=== PATIENT | female | born 1955 | race Caucasian/White ===

== ENCOUNTER 2018-06-09 10:22 | Emergency (ER) | payer MEDICARE, BC ==
[~2018-06-09] VITALS: Ht 162.6 cm; Wt 68.0 kg
[~2018-06-09 10:22] MED LIST: [UNRECOGNIZED DRUG - OTHER]
[2018-06-09 10:58] LABS: Source, Urine Clean Catch
[2018-06-09 11:13] LABS: Bilirubin, Urine Neg (Neg); Blood, Urine 4+ (Neg); Glucose Qualitative, Urine Neg (Neg); Ketones, Urine Neg (Neg); Leukocyte Esterase, Urine Neg (Neg); Nitrite, Urine Neg (Neg); Protein, Urine Neg (Neg); Specific Gravity, Urine 1.025 (1.003-1.022); Urobilinogen, Urine NORM (Normal)
[2018-06-09 11:36] LABS: Appearance, Urine Clear (Clear); Color, Urine Yellow (P-Yellow)
[2018-06-09 11:37] LABS: Bacteria Rare /hpf; Mucus Light (0-Heavy); Squamous Epithelial Cells Few /hpf (Few); White Blood Cells, Urine 0-2 /hpf (0-5)
[2018-06-09] MEDS ORDERED: MECL12.5 PO (12:03)
== END 2018-06-09 12:20 | disposition home or self-care (01) ==
LOC: ER 10:22
PROVIDERS: Internal Medicine
DX: H83.09 Labyrinthitis, unspecified ear (principal); M62.830 Muscle spasm of back; Z91.048 Other nonmedicinal substance allergy status
CPT/HCPCS: 81001; 99283

== ENCOUNTER 2020-06-09 00:18 | Inpatient (IN) | payer MEDICARE, BC, OTHER ==
[~2020-06-09] VITALS: Ht 162.6 cm; Wt 72.4 kg
[~2020-06-09 00:18] MED LIST changes: +MECL12.5 PO
[2020-06-09 06:12] LABS: BASOPHILS ABSOLUTE AUTO 0.04 K/mm3 (0.00-0.23); BASOPHILS PERCENT AUTO 1 % (0-2); EOSINOPHILS ABSOLUTE AUTO 0.87 K/mm3 (0.00-0.68); EOSINOPHILS PERCENT AUTO 10 % (0-6); Hematocrit 40.7 % (33.0-51.0); Hemoglobin 13.7 g/dL (11.5-16.0); IMMATURE GRAN ABSOLUTE AUTO 0.01 K/mm3 (0.00-0.10); IMMATURE GRAN PERCENT AUTO 0 % (0-1); LYMPHOCYTES PERCENT AUTO 29 % (21-46); MONOCYTES PERCENT AUTO 7 % (4-13); Mean Corpuscular HGB 30.6 pg (26.0-34.0); Mean Corpuscular HGB Conc 33.7 g/dL (31.5-36.5); Mean Corpuscular Volume 91 fL (80-100); Mean Platelet Volume 9.7 fL (9.1-12.4); NEUTROPHILS ABSOLUTE AUTO 4.52 K/mm3 (1.96-9.15); NEUTROPHILS PERCENT AUTO 53 % (41-73); Platelet Count 278 K/mm3 (150-400); RDW Coefficient Variation 15.1 % (11.7-14.2); RDW Standard Deviation 50.6 fL (35.1-46.3); Red Blood Cell Count 4.47 M/mm3 (3.80-5.20); White Blood Cell Count 8.54 K/mm3 (4.00-11.30)
[2020-06-09 06:17] LABS: Alanine Aminotransfer (ALT/SGP 39 U/L (12-78); Albumin, Blood 3.6 g/dL (3.4-5.0); Albumin/Globulin Ratio 1.1 (0.8-1.8); Alk Phos 110 U/L (50-136); Anion Gap 6 mmol/L (6-16); Aspartate Aminotrans (AST/SGOT 15 U/L (12-37); Bilirubin, Total 0.4 mg/dL (0.1-1.0); Blood Urea Nitrogen 18 mg/dL (8-24); Bun/Creatinine Ratio 25.7 (12.0-20.0); CO2, Blood 26 mmol/L (21-32); Calcium, Blood 9.1 mg/dL (8.5-10.1); Chloride, Blood 106 mmol/L (98-108); Globulin, Blood 3.3 g/dL (2.2-4.0); Glomerular Filtration Rate >60 (60-); Glucose, Blood 137 mg/dL (70-99); Potassium, Blood 3.4 mmol/L (3.5-5.5); Sodium, Blood 138 mmol/L (136-145); Total Protein, Blood 6.9 g/dL (6.4-8.2); Troponin I <0.015 ng/mL (0.000-0.040)
[2020-06-09 06:20] LABS: Source, Urine Clean Catch
[2020-06-09 06:29] LABS: Bilirubin, Urine Neg (Neg); Blood, Urine 1+ (Neg); Glucose Qualitative, Urine Neg (Neg); Ketones, Urine Neg (Neg); Leukocyte Esterase, Urine 1+ (Neg); Nitrite, Urine Neg (Neg); Protein, Urine Neg (Neg); Urobilinogen, Urine NORM (Normal)
[2020-06-09 06:42] LABS: Appearance, Urine Clear (Clear); Color, Urine Yellow (P-Yellow)
[2020-06-09 06:44] LABS: Red Blood Cells, Urine 0-2 /hpf (0-2)
[2020-06-09 06:45] LABS: Bacteria Few /hpf; Squamous Epithelial Cells Rare /hpf (Few); Transitional Epithelial Cells Rare /hpf (0-Rare)
--- NOTE | 2020-06-09 08:00 | NUR ---
LEFT FACIAL DROOP. SMILE UNEQUAL. TONGUE DEVIATES TO RT. NPO TILL SWALLOW EVAL. WILL HAVE MRI HEAD.
--- NOTE | 2020-06-09 08:06 | NUR ---
ADVISED PATIENT COULD NOT SWALLOW PILLS AND HAD WEAK COUGH WITH DRINKING WATER. OK TO ORDER SWALLOW EVAL
--- NOTE | 2020-06-09 09:31 | NUR ---
ASK IF SHOULD GIVE LOVENOX. FLUID FINDINGS IN CT HEAD PER NOTE. PER SPEECH EVAL POSSIBLE STROKE. MRI SCHEDULED FOR 11:45 TODAY. HOLD LOVENOX AT THIS TIME AND WILL PUT ON SCD'S. SCD'S ORDERED AND LEGAL RESEARCHER NOTIFIED. IN TO SEE PATIENT.
--- NOTE | 2020-06-09 12:43 | NUR ---
BACK FROM MRI
--- NOTE | 2020-06-09 12:48 | NUR ---
ADVISED SB 49 AND HAS BEEN RUNNING LOW 50'S PRIOR. EKG ORDERED. TECH PAGED. BLOOD PRESS. GOOD. WCTM
--- NOTE | 2020-06-09 17:39 | NUR ---
ARRIVES TO FLOOR ABOUT 0754 FROM E.R. PATIENT FELL YESTERDAY AND HAS INTRACTABLE N/V. LEFT SIDED FACIAL DROOP, TONGUE DEVIATES TO RT, DIFFICULTY SWALLOWING AND DOUBLE VISION. DENIES DOUBLE VISION AFTER MRI. HAD SWALLOW EVAL THIS AM AND NPO ONLY IV MEDS. PATIENT STS IN THE AFTERNOON THAT SHE FEELS LIKE SHE CAN SWALLOW AND WANTS "APPLESAUCE AND HER VITAMINS". ADVISED THAT SHE CAN NOT. DERICK GRUBBS , SPEECH THERAPIST, WILL BE IN TOMORROW AND WILL DO REEVAL. IV PATENT W/POTASSIUM GOING IN SLOW AND CONCURRENTLY W/NACL. UNLABORED RESPIRATIONS. USES BED MEDEL. DENIES DIZZINESS WHEN NOT MOVING. TELE ON AND PER TECH SB AT 54. WCTM.
--- NOTE | 2020-06-09 18:36 | NUR ---
REPORT GIVEN TO CONTROL SUPERVISOR.
--- NOTE | 2020-06-09 18:47 | NUR ---
TALKED TO RADIOLOGY ABOUT PATIENTS PAST CT/MRI W/CONTRAST. PER RADIOLOGY PATIENT HAS HAD ABOUT 9 CT W/CONTRAST, BUT THEY ARE UNABLE TO SAY WHAT CONTRAST WAS USED OR IF ANY REACTION ALL ARE ARCHIVED. LAST ONE WAS 2003. PER PATIENT SHE HAS ALWAYS REFUSED CONTRAST. ADVISED PATIENT TO TALKED TO WHO ORDERED SOME OF THE CT'S AND SEE IF SHE HAS AN ALLERGY UPDATE. PATIENT STS HER NEUROLOGIST HAS TOLD HER TO REFUSE CONTRAST. WILL LET HOT PLATE [employer] PRESS OFFBEARER KNOW.
[2020-06-10 05:02] LABS: BASOPHILS ABSOLUTE AUTO 0.06 K/mm3 (0.00-0.23); BASOPHILS PERCENT AUTO 1 % (0-2); EOSINOPHILS ABSOLUTE AUTO 0.06 K/mm3 (0.00-0.68); EOSINOPHILS PERCENT AUTO 1 % (0-6); Hematocrit 38.8 % (33.0-51.0); Hemoglobin 13.1 g/dL (11.5-16.0); IMMATURE GRAN ABSOLUTE AUTO 0.03 K/mm3 (0.00-0.10); IMMATURE GRAN PERCENT AUTO 0 % (0-1); LYMPHOCYTES ABSOLUTE AUTO 2.34 K/mm3 (0.84-5.20); LYMPHOCYTES PERCENT AUTO 23 % (21-46); MONOCYTES ABSOLUTE AUTO 0.73 K/mm3 (0.16-1.47); MONOCYTES PERCENT AUTO 7 % (4-13); Mean Corpuscular HGB 31.2 pg (26.0-34.0); Mean Corpuscular HGB Conc 33.8 g/dL (31.5-36.5); Mean Corpuscular Volume 92 fL (80-100); Mean Platelet Volume 9.1 fL (9.1-12.4); NEUTROPHILS ABSOLUTE AUTO 6.91 K/mm3 (1.96-9.15); NEUTROPHILS PERCENT AUTO 68 % (41-73); Platelet Count 249 K/mm3 (150-400); RDW Coefficient Variation 15.3 % (11.7-14.2); RDW Standard Deviation 51.6 fL (35.1-46.3); White Blood Cell Count 10.13 K/mm3 (4.00-11.30)
[2020-06-10 05:24] LABS: Alanine Aminotransfer (ALT/SGP 31 U/L (12-78); Albumin, Blood 3.6 g/dL (3.4-5.0); Albumin/Globulin Ratio 1.1 (0.8-1.8); Alk Phos 104 U/L (50-136); Anion Gap 4 mmol/L (6-16); Aspartate Aminotrans (AST/SGOT 12 U/L (12-37); Bilirubin, Total 0.7 mg/dL (0.1-1.0); Blood Urea Nitrogen 7 mg/dL (8-24); Bun/Creatinine Ratio 10.9 (12.0-20.0); CO2, Blood 27 mmol/L (21-32); Calcium, Blood 9.1 mg/dL (8.5-10.1); Chloride, Blood 110 mmol/L (98-108); Creatinine, Blood 0.64 mg/dL (0.40-1.00); Globulin, Blood 3.3 g/dL (2.2-4.0); Glomerular Filtration Rate >60 (60-); Glucose, Blood 97 mg/dL (70-99); Potassium, Blood 3.8 mmol/L (3.5-5.5); Sodium, Blood 141 mmol/L (136-145); Total Protein, Blood 6.9 g/dL (6.4-8.2)
--- NOTE | 2020-06-10 06:37 | NUR ---
SHIFT SUMMARY PT IS A 65 Y/O FEMALE, ADMITTED FOR POSSIBLE CVA & DIZZINESS. SHE IS A&O X 4, WITH A L-SIDE FACIAL DROOP AND MILD LUE WEAKNESS. THE PT REPORTS MILD L-SIDE FACIAL NUMBNESS THAT BEGAN DURING THE NIGHT, BUT OTHERWISE NO NEURO CHANGES NOTED. PER PT'S DAUGHTER, PT'S CONTRAST ALLERGY IS AN ALLERGY TO GADOLINIUM-BASED CONTRAST. TELE SHOWED SB IN THE 40-50S. VITAL SIGNS OTHERWISE STABLE. NO COMPLAINTS OF ACUTE PAIN, NAUSEA OR SOB. NO OTHER ACUTE CHANGES IN PT CONDITION NOTED DURING THE NIGHT. WILL CONTINUE TO MONITOR AND TREAT PER EMAR UNTIL HAND OFF TO DAY SHIFT RN.
[2020-06-10 17:01] LABS: CHOL/HDL RATIO 4.3; Cholesterol 260 mg/dL (50-200); HDL Cholesterol 60 mg/dL (>39); LDL/HDL RATIO 2.7; Low Density Lipoprotein Chol 160 mg/dL (0-110); Triglycerides 200 mg/dL (30-160); Very Low Density Lipoprot Chol 40 mg/dL (6-32)
--- NOTE | 2020-06-10 17:55 | NUR ---
SHIFT SUMMARY PATIENT ALERT AND ORIENTED THIS SHIFT. PATIENT CONTINUES TO HAVE LEFT SIDED FACIAL DROOP AND LEFT SIDED WEAKNESS. PATIENT WORKED WITH PT/OT THIS SHIFT. PATIENT EVALUATED BY SPEECH THERAPY THIS SHIFT. PATIENT ADVANCED TO PUREED DIET. PATIENT SITTING UP IN THE RECLINER FOR MUCH OF THE MORNING, UP IN BED THROUGHOUT THE AFTERNOON. PATIENT'S IN THE ROOM MUCH OF THIS SHIFT. PATIENT CURRENTLY SITTING UP IN BED EATING DINNER.
--- NOTE | 2020-06-11 05:24 | NUR ---
TRADE EMBALMER SUMMARY PT A/O X4. CONTINUES TO HAVE L SIDED WEAKNESS, AND L SIDED FACIAL NUMBNESS. NO FACIAL DROOPING NOTED. PUPILS ARE EQUAL AND REACTIVE TO LIGHT. DENIES PAIN. SLEPT WELL TONIGHT. VSS. NO ACUTE CHANGES.
[2020-06-11 15:57] LABS: Albumin, Blood 3.8 g/dL (3.4-5.0); Anion Gap 6 mmol/L (6-16); Blood Urea Nitrogen 12 mg/dL (8-24); Bun/Creatinine Ratio 16.3 (12.0-20.0); CO2, Blood 26 mmol/L (21-32); Calcium, Blood 9.8 mg/dL (8.5-10.1); Chloride, Blood 108 mmol/L (98-108); Creatinine, Blood 0.74 mg/dL (0.40-1.00); Glomerular Filtration Rate >60 (60-); Glucose, Blood 116 mg/dL (70-99); Magnesium, Blood 2.2 mg/dL (1.6-2.4); Phosphorus, Blood 3.4 mg/dL (2.5-4.9); Potassium, Blood 3.8 mmol/L (3.5-5.5); Sodium, Blood 140 mmol/L (136-145)
--- NOTE | 2020-06-11 16:15 | NUR ---
PT TRANSFERED TO ICU- TELEPHONE REPORT COMPLETED FOLLOWED BY BEDSIDE REPORT, NO FURTHER QUESTIONS AT THE TIME OF TRANSFER.
--- NOTE | 2020-06-11 18:10 | NUR ---
Advanced directive completed for Alison. Her spouse, Franko, was present. AD for both pt and spouse notarized. Copies made. Also Durable POA notarized at pt request. Pt and family non-rastafarian, but responded well to encouragement and affirmation. I will remain available.
--- NOTE | 2020-06-11 18:13 | NUR ---
RECIEVED A CALL FROM TELE- PT ALERT ORIENTED AND DENIES CP OR SOB. PER TELE PT HR VERY IRREGULAR IN THE 160'S. CALLED DR CLARK AND RECIEVED ORDER FOR EKG. EKG RESULT AFIB RVR. TELE CALLED AGAIN STATED PT SPIKING UP TO 190'S. PT STILL ASYMPTOMATIC, DENIES CP OR SOB, PT DID C/O BACK PAIN BUT STATES THAT HAPPENS ALL THE TIME IT IS NOT NEW. CALLED DR CLARK WITH THE RESULT FROM THE EKG, RECIEVED ORDER FOR IV PUSH OF CARDIZEM, TRANSFER TO ICU AND IV DRIP OF CARDIZEM.
--- NOTE | 2020-06-11 19:19 | NUR ---
ASSUMED CARE/SHIFT SUMMARY PT ARRIVES TO ICU AT 1614 VIA STRETCHER. SHE IS ALERT AND ORIENTED X 4 (SELF, SITUATION, SURROUNDINGS AND DATE). SHE DENIES CHEST PAIN, SHORTNESS OF BREATH, AND NAUSEA. SHE IS IN AFIB/FLUTTER, RVR (RATE STARTED OUT IN THE 150-190s. CARDIZEM WAS NOT STARTED RIGHT AWAY DUE TO HER ONLY IV INFILTRATING. WE EVENTUALLY WERE ABLE TO GET A POWERGLIDE IN HER RIGHT UPPER ARM AND CARDIZEM WAS STARTED AT 1718 AT 5 MG/HR, AND WAS TITRATED UP TO 15 MG/HR BY 1750 (THE CURRENT GTTP DOSE). HER AFLUTTER RATE HAS DECREASED SLIGHTLY AND HAS BEEN 70-160s, AND THERE APPEARS TO BE SHORT PAUSES (<1s), NOC RN AWARE. PT HAS STABLE VITALS (SLIGHTLY HYPERTENSIVE), AND SHE IS ON ROOM AIR. SHE C/O LEFT SIDED WEAKNESS, LEFT SIDED FACIAL NUMBNESS, AND "VOCAL PARALYSIS" (THUS WHY SHE IS ON DYSPHAGIA PRECUATIONS). SHE HAD SLURRED SPEECH AT ONE POINT BUT IT HAS SINCE IMPROVED. DR. PUGA CONSULTD, HE CALLED THIS RN AND HE WAS UPDATED ON THE PT's CONDITION - HE STATES HE WILL BE IN TO SEE PT AROUND ~[id number] [facility]. DAUGHTER HAS BEEN AT BEDSIDE, AND INVOLVED VERY MUCH SO WITH HER MOTHER'S CARE PLAN. THEY ARE VERY PARTICULAR ABOUT "WESTERN MEDICINE" AND PREFER NATUROPATHIC/ALTERNATIVE MEDICINE. THEY BELIEVE THE LIPITOR THAT SHE WAS GIVEN HAD CAUSED THE A FLUTTER/STROKE. DR. CLARK DISCONTINUED THE LIPITOR. WE DISCUSSED THE IMPORTANCE OF LOWERING CHOLESTEROL LEVELS, AND SHE IS MOTIVATED TO LOWER HER CHOLESTEROL WITH DIET AT HOME. SHE TAKES BOVINE THYROID HORMONE AND IT IS 65 MG DAY 1, 150 MG DAY 2, THAN IT ALTERNATES EACH DAY. THYROID HORMONE WAS BROUGHT IN FROM HOME, AND NOW HAVE BEEN PROCESSED BY PHARMACY AND IN THE LOCK BOX (TWO CONTAINERS; ONE - 65 MG CAPSULES & THE OTHER - 150 MG CAPSULES). BED LOW AND LOCKED. CALL LIGHT WITHIN REACH.
--- NOTE | 2020-06-11 20:00 | NUR ---
ASSUMPTION OF CARE PT ALERT AND ORIENTED x4, DAUGHTER AT BEDSIDE, PT ENGAGING WITH DAUGHTER AND STAFF IN CONVERSATION, PT KNOWLEDGABLE OF CURRENT SITUATION AND MEDICAL HISTORY, PREFERS TO DO HER OWN RESEARCH/DISCUSS WITH FAMILY PRIOR TO ACCEPTING NEW TESTS/MEDICATIONS/INTERVENTIONS. PT REPORTS L SIDED FACIAL NUMBNESS, HOWEVER R SIDE OF FACE APPEARS TO HAVE MINIMAL WEAKNESS/DROOPING. L SIDED WEAKNESS NOTED TO ARM AND LEG, PT USES WALKER WITH 1 PERSON ASSIST TO BEDSIDE TOILET, HAS DIFFICULTY STANDING STRAIGHT UP. O2 SATURATIONS> 90% ON RA, MONITOR SHOWS AFLUTTER WITH PAUSES, HR 80'S-120'S, BP STABLE, CARDIZEM GTT INFUSING. PT ON PUREED DIET, MILD NAUSEA, OTHERWISE DENIES GI/ ISSUES. PT POSITION SELF FOR COMFORT INDEPENDENTLY. CALL LIGHT WITHIN REACH, PT USING APPROPRIATELY.
--- NOTE | 2020-06-11 20:55 | NUR ---
DR ROA IN TO EVALUATE PT.
--- NOTE | 2020-06-11 20:55 | NUR ---
DR KNOWLES IN TO EVALUATE PT
--- NOTE | 2020-06-12 06:09 | NUR ---
SHIFT SUMMARY NO ACUTE CHANGES THIS SHIFT, PT SLEPT WELL T/O NIGHT, AROUSES TO VERBAL STIMULI, REMAINS ORIENTED x4, STS DIZZINESS IS OVERALL IMPROVED, DENIES NAUSEA. CARDIZEM GTT TITRATED TO 5mg/hr, HR 70'S-90'S, BP SOFT WHILE SLEEPING BUT WITH MAPS MAINTAINED>65. PT TOLERATING PO MEDICATIONS WITH APPLESAUCE. PT 1 PERSON ASSIST TO BSC, PT REPORTS DARKER COLORED URINE THIS AM AND IS CONCERNED FOR DEHYDRATION, THICKENED WATER PROVIDED WITH SPOON, PT DRINKS INDEPENDENTLY. L SIDED WEAKNESS REMAINS. [facility], PT USING APPROPRIATELY.
--- NOTE | 2020-06-12 08:00 | NUR ---
ASSUMED CARE PT SITTING UP IN BED, ALERT AND ORIENTED X 4. SHE IS DIZZY (AGAIN) THIS MORNING, WITH CONTINUED LEFT SIDED WEAKNESS, LEFT FACIAL NUMBNESS, BUT DENIES ANY PAIN, SOB, OR NAUSEA. CARDIZEM IS AT 5 MG/HR. STABLE BP. SATs IN 90s ON ROOM AIR. BED LOW AND LOCKED. CALL LIGHT WITHIN REACH.
[2020-06-12 09:46] LABS: Albumin, Blood 3.7 g/dL (3.4-5.0); Anion Gap 9 mmol/L (6-16); Blood Urea Nitrogen 14 mg/dL (8-24); Bun/Creatinine Ratio 20.7 (12.0-20.0); CO2, Blood 25 mmol/L (21-32); Calcium, Blood 9.3 mg/dL (8.5-10.1); Chloride, Blood 104 mmol/L (98-108); Creatinine, Blood 0.68 mg/dL (0.40-1.00); Glomerular Filtration Rate >60 (60-); Glucose, Blood 206 mg/dL (70-99); Magnesium, Blood 2.1 mg/dL (1.6-2.4); Phosphorus, Blood 2.9 mg/dL (2.5-4.9); Potassium, Blood 3.7 mmol/L (3.5-5.5); Sodium, Blood 138 mmol/L (136-145)
--- NOTE | 2020-06-12 11:22 | NUR ---
UPDATE (LONG) 1. WANTING TO TRANSFER, DR. ACHARYA, DR. CLARK THIS MORNING PT AND HER DAUGHTER HAVE BEEN FEELING ANXIETY RELATED TO THE EVENTS LEADING UP TO AND FOLLOWING HER CVA. PT STATES THAT DR. ACHARYA TOLD HER LAST NIGHT THAT HE WAS UPSET AT DR. CLARK FOR LEAVING CERTAIN DETAILS OF HER PRESENTATION OUT OF HER CONSULT TO HIM. BECAUSE OF THIS - TREATMENT FOR STROKE WAS DELAYED, AND HE (DR. ACHARYA) DIDN'T SEE THE PT FAST HE WOULD HAVE LIKED BECAUSE HE WAS UNAWARE THIS WAS A STROKE. AGAIN, THESE WORDS ARE WHAT THE PT AND HER DAUGHTER ARE TELLING ME. I AM UNSURE WHAT THE TRUTH IS, AND I AM MENTIONING THIS BECAUSE -- ORIGINALLY THEY WERE REQUESTING TO BE DISCHARGED TO A REHAB FACILITY IN [place], BUT NOW HAVE BEEN REQUESTING THAT THEY BE TRANSFERRED TO [facility]. DR. CLARK HAS SINCE BEEN IN THE ROOM, AND DISCUSSED THIS WITH THE PT. IT APPEARS TO BE IN THE WORKS. ADDITIONALLY, SOMETHING TO MENTION RE. ACHARYA SAYS REGARDING THE NEED FOR AN MRI-A THAT TREATMENT WOULD BE THE SAME WITH OR WITHOUT THE SCAN, SO HE WAS WANTING TO OPT OUT OF DOING THE SCAN. 2. CALVIN - TREATMENT FOR AFLUTTER RVR, ANTICOAGULATION RISKS/BENEFITS, CONVERSION TO SINUS PT HAS BEEN VERY SKEPTICAL WITH MEDICATIONS ( SHE BELIEVES SHE GOT THE ARRYTHMIA FROM [facility]). DR. SIMPSON HAD A DISCUSSION WITH THE PT AND HER DAUGHTER REGARDING THE IMPORTANCE OF BEING ANTICOAGULATED WELL HAVING A PO ANTIARRHYTHMIC MEDICATION (CARDIZEM). THEY TALKED ABOUT THE RISKS OF TAKING ANTICOAGULANTS. THEY DISCUSSED WHAT DR SIMPSON BELIEVES IS HAPPENING IN HER HEART, AND THE POTENTIAL THAT SHE MAY NEED TO SEE AN NATURAL RESOURCES EXTENSION EDUCATOR AT SOME POINT FOR AN ABLATION. THE PT STATES SHE WOULD LIKE TO THINK ABOUT IT BECAUSE SHE IS CONCERNED ABOUT THE RISK FOR BLEEDING. I EDUCATED HER ON THE DIFFERENCE BETWEEN ASPIRIN AND MEDICATIONS LIKE XARELTO AND ELIQUIS. SHE WAS UNDER THE IMPRESSION ASPIRIN WOULD BE AN EFFICIENT ANTICOAGULATION MEDICATION FOR A FLUTTER. SHE DID AGREE TO TAKING CARDIZEM PO. DR. SIMPSON INSTRUCTED ME TO GIVE THE PO CARDIZEM AND TO WAIT 2 HOURS AND REEVALUATE NEED FOR RATE CONTROL WITH THE GTTP. CARDIZEM WAS PLACED ON STANDBY AT 1115, THE PT CONVERTED TO SINUS RHYTHM AT APPROZ 1110, WITH A RATE IN THE 60s. 3. SYMPTOMS, ST/PT/OT PT'S LEFT SIDED WEAKNESS HAS IMPROVED, BUT STILL PRESENT. HER LEFT SIDE FACIAL NUMBNESS HAS SUBSIDED FOR THE MOST PART. NO SLURRED SPEECH. SHE HAS THE EYE PATCH ON, WHICH SHE HAS BEEN SWITCHING EYES EVERY 2 HOURS. THIS HAS BEEN HELPING WITH THE DIPLOPIA AND DIZZINESS, ALTHOUGH SHE HAS BEEN DIZZY THIS MORNING - AND HAS IMPROVED WITH MEDICATION. 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 PT AND OT REPORT PT REQUIRING 1+ ASSIST, BUT ARE OPTIMISTIC WITH HER IMPROVEMENT FROM THE DAY PRIOR. BED LOW AND LOCKED. CALL LIGHT WITHIN REACH.
--- NOTE | 2020-06-12 15:40 | NUR ---
update PT REMAINS IN SINUS RHYTHM, RATE IS 60-80s DEPENDING ACTIVITY OR ANXIETY LEVEL. BP STABLE (SLIGHTLY ELEVATED AT TIMES). PT WAS DENIED A BED IN [facility]. DR. CLARK HAD TRIED TO GET THE TRNASFER APPROVED, BUT ACCORDING TO SAUL - THEY WOULDN'T BE DOING ANYTHING DIFFERENT, TREATMENT LINK. THE PT AND DAUGHTER ARE UPSET BY THIS, AND HAVE BEEN TRYING TO FIGURE OUT HOW TO APPEAL THIS. PT ADVOCATE HAS BEEN BY THE ROOM. BED LOW AND LOCKED. CALL LIGHT WITHIN REACH.
--- NOTE | 2020-06-12 17:34 | NUR ---
SHIFT SUMMARY AFTER MUCH DELIBERATION WITH THE PT ADVOCATE, SAUL CASTILLO, AND DR. CLARK - THE WILL STAY AT [facility] FOR THE TIME BEING, AND WILL BE EXPEDITED INTO THE REHAB FACILITIES UP IN [place] UPON DISCHARGE. SHE REMAINS IN SINUS RHYTHM WITH A CONTROLLED RATE. SHE IS STILL CONSIDERING BEING ANTICOAGULATED (SHE HAS BEEN GIVEN EDUCATIONAL DOCUMENTS ON XARELTO AND ELIQUIS, ALONG WITH BEING EDUCATED BY DR. SIMPSON) - SO FOR THE TIME BEING SHE IS ON ASPIRIN AND LOVENOX. SHE IS NOW PCU STATUS. REMAINS ON ROOM AIR, WITH STABLE VITALS. SHE HAS HAD MUCH BETTER INTAKE. HER NEURO SYMPTOMS (WEAKNESS, NUMBNESS, DIPLOPIA, ETC...) HAVE IMPROVED, ALTHOUGH SHE STILL FEELS DIZZY FROM TIME TO TIME. SHE ALSO STILL WEARS THE EYE PATCH, AND IT HELPS WITH HER DIZZINESS, NAUSEA, AND DIPLOPIA. PT DENIES PAIN, SOB, AND NAUSEA. SHE STATES SHE FEELS "MUCH BETTER". BED LOW AND LOCKED. CALL LIGHT WITHIN REACH.
--- NOTE | 2020-06-13 05:19 | NUR ---
END OF SHIFT SUMMARY NO ACUTE CHANGES THIS SHIFT. VSS. PT AXO. PRESENTS WITH OUT SLURRED SPEECH PRONATOR DRIFT. SLIGHT L FACIAL DROOP NOTED AND CONTINUED L SIDED WEAKNESS. PT AMBULATED TO BSC WITH LITTLE ASSISTANCE FROM STAFF USING FWW THIS SHIFT. PT REMAINS IN SR, STABLE BP. REMIANS ON RA, SPO2 >94%. CONTINUES WITH DIPLOPIA AND, WHEN AWAKE, ALTERNATING EYES BEING COVERED BY EYE PATCH. POWERGLIDE CONTINUES TO INFUSE EASILY. PT TOLERATING PO FLUIDS WELL AND APPLESAUCE/MEDS. PT HAVING APPROPRIATEW CONVERSATIONS WITH STAFF AND IS VERY COOPERATIVE AND OPTIMISTIC ABOUT PROGNOSIS. OTHERWISE, PT HAS BEEN RESTING IN ROOM T/O SHIFT. WILL CONTINUE TO MONITOR UNTIL SHIFT CHANGE.
--- NOTE | 2020-06-13 14:19 | NUR ---
REASSESSMENT PT SPENT THE MORNING RESTING IN BED. SHE IS STILL HAVING DOUBLE VISION, WEARING AN EYE PATCH TO HELP. SHE IS ALSO HAVING VERTIGO AND SOME MILD NAUSEA, MOSTLY ASSOCIATED WITH MOVING AND THE VERTIGO. SHE WORKED WITH PHYSICAL THERAPY AND ALSO TOOK A SHOWER WITH MINIMAL ASSISTANCE. LUNGS REMAIN CLEAR, RA. SB IN THE UPPER 50S, LOWER 60S, BP HYPERTENSIVE WITH SBP 160S. PT STATES NO BM SINCE SHE GOT HERE, BUT WOULD LIKE TO JUST TRY PRUNE JUICE, WHICH WAS PROVIDED TO HER. VOIDING WITHOUT DIFFICULTY. CONTINUING TO MONITOR.
--- NOTE | 2020-06-13 16:45 | NUR ---
PT TO ROOM 224. PT SPEECH CLEAR. THIS RN BEEN GIVEN REPORT AND IS ASSUMING CARE OF PT AT THIS TIME. PT TO BE ON TELE. PT UP WITH ASSIST TO BED FROM W/C. PT PLEASANT AND COOPERATIVE AT THIS TIME. ALARM ON FOR SAFETY.
--- NOTE | 2020-06-13 16:46 | NUR ---
TRANSFER AFTER ROUNDS DR. SELLERS DOWNGRADED PT TO MEDICAL TELE STATUS. PT TO TRANSFER TO RM 224. REPORT GIVEN TO LISETTE HOLLIS. PT TRANSFERRED VIA WC WITH ALL BELONGINGS. PT TOLERATED TRANSFER WELL. CONTINUING TO MONITOR.
--- NOTE | 2020-06-14 04:54 | NUR ---
SHIFT SUMMARY PT A/O. L FACIAL DROOP AND L SIDE WEAKNESS PERSIST, WELL DOUBLE VISION AND DIZZINESS WITH MOVEMENT. PT REPORTS SYMPTOMS SEEM TO BE IMPROVING. PT NEEDING 1X ASSIST TO COMMODE. TOLERATING DIET WITH SWALLOW PRECAUTIONS. PT HAS BEEN SLEEPING MOST OF THE SHIFT. CALL LIGHT IN REACH. DENIES FURTHER NEEDS OR CONCERNS. POWER GLIDE FLUSHES WELL BUT DID NOT DRAW BACK. VSS.
[2020-06-14] MEDS ORDERED: Vitamin D2000 UNIT PO (09:36)
[2020-06-14] MEDS ORDERED: Selenomax200 MCG PO (09:38)
[2020-06-14] MEDS ORDERED: [UNRECOGNIZED DRUG - OTHER] PO (09:44)
[2020-06-14] MEDS ORDERED: [UNRECOGNIZED DRUG - OTHER] PO (09:45)
--- NOTE | 2020-06-14 17:54 | NUR ---
SHIFT SUMMARY DIZZYNESS/VOMITING, A/O X4, VSS, TOLERATING PO, INDEPENDENT USING FWW AND 1X SBA, VOIDING WELL. PT REPORTED CONCERN FOR NOT HAVING PRIOR PRESCRIBED VIT D, CONSULTED W/ HOSPITALIST TO GET AN ORDER, ADMINISTERED FIRST DOSE (SEE EMAR), RECONCILED HOME MEDICATIONS INTO PT CHARTS. CALL LIGHT IN REACH, WILL CONTINUE TO MONITOR AND REPORT TO ONCOMING NOC RN.
--- NOTE | 2020-06-15 04:53 | NUR ---
SHIFT SUMMARY PT A/O X4. L SIDE WEAKNESS, DOUBLE VISION, AND VERTIGO PERSIST, BUT PT REPORTS CONTINUED IMPROVEMENT. NEEDING SBA TO AMBULATE. USING EYE PATCH ALTERNATING EYES Q2 HRS. PT REFUSED APRESOLINE AT BEDTIME, DUE TO SIDE EFFECTS. REPORTS BLOOD PRESSURE IS CLOSE TO BASELINE FOR HER. NO ACUTE CHANGES OVERNIGHT. DENIES FURTHER NEEDS OR CONCERNS. CALL LIGHT IN REACH.
--- NOTE | 2020-06-16 03:22 | NUR ---
NOTIFIED HOSPITALIST REGARDING HTN DESPITE ADMINISTRATION OF ORAL CARDIZEM. NO NEW MEDICATION ORDERS AT THIS TIME. WILL NOTIFY AGAIN IF SBP >200 PER HOSPITALIST ORDER.
--- NOTE | 2020-06-16 04:39 | NUR ---
SHIFT SUMMARY: PT A&O X4. CONTINUES TO HAVE MILD LEFT SIDED WEAKNESS, ALTHOUGH REPORTS HER STRENGTH IS IMPROVING. OUT OF BED TO BATHROOM WITH SBA AND FWW WITH GB. VOIDING WELL. USING EYE PATCH THROUGHOUT SHIFT FOR C/O DOUBLE VISION. VERTIGO STILL PRESENT WITH AMBULATION. PT REPORTS N/T TO LUE FINGERS AND LEFT SIDE OF FACE. TOLERATING MEDS WITH APPLE SAUCE. PT HYPERTENSIVE THIS SHIFT DESPITE ADMINISTRATION OF CARDIZEM. HOSPITALIST NOTIFIED WITHOUT NEW ORDERS. SR AT 63 PER CANVAS WORKER APPRENTICE. PLAN FOR DISCHARGE TODAY TO [facility] AT 1100.
--- NOTE | 2020-06-16 10:50 | NUR ---
DISCHARGE PT VERY EXCITED FOR TRANSFER TO REHAB. VERY OPTIMISTIC AND MOTIVATED. SBA W/ FWW & GB. BARELY ANY L EYE DROOP AND FACIAL. REPORT CALLED TO [facility]. WAITING FOR TRANSPORTATION TO ARRIVE.
--- NOTE | 2020-06-16 11:08 | NUR ---
TRANSFERED OUT VIA [facility] W/ [facility]
== END 2020-06-16 11:08 | DRG 64 ==
LOC: ER 00:18 → MEDS 00:19 → ICUE 06-10 17:09 → MEDS 06-10 17:10 → ICUE 06-11 16:10 → SURS 06-13 16:45
PROVIDERS: Emergency Medicine; Family Medicine; ADMIT Internal Medicine
DX: I63.219 Cerebral infarction due to unspecified occlusion or stenosis of unspecified vertebral artery (principal); J98.59 Other diseases of mediastinum, not elsewhere classified; I48.92 Unspecified atrial flutter; E87.6 Hypokalemia; E03.9 Hypothyroidism, unspecified; E86.0 Dehydration; R13.10 Dysphagia, unspecified; I48.0 Paroxysmal atrial fibrillation; E78.5 Hyperlipidemia, unspecified; E23.6 Other disorders of pituitary gland; I49.5 Sick sinus syndrome; K21.9 Gastro-esophageal reflux disease without esophagitis
CPT/HCPCS: 36415; 70450; 70551; 71045; 80053; 80061; 80069; 81001; 83036; 83735; 84443; 84484; 85025; 87086; 92526; 92610; 93005; 93010; 93306; 94760; 96361; 96372; 96374; 96375; 96376; 97110; 97112; 97116; 97162; 97166; 97530; 97535; 99285-25; A9270-GY; C1751; G0378; J1650; J2405; J2550; J3480; J7030; U0003